=== PATIENT | female | born 1940 | race Caucasian/White ===

== ENCOUNTER → 2018-06-07 | Outpatient (CLI) | payer OTHER, BC ==
[~2018-06-07] VITALS: Ht 152.4 cm; Wt 86.2 kg
[~2018-06-07] MED LIST: ATORVASTATIN CA40 MG PO; AZITHROMYCIN 2250 MG PO; CIPRO500 MG PO; DEMADEX20 MG PO; HYDRALAZINE 2525 MG PO; HYDREA 500 MG500 M1 PO; LIORESAL 10 MG10 MG PO; METOPROLOL SUCC50 MG PO; NEURONTIN600 MG PO; NORVASC5 MG PO; OMEPRAZOLE 20 M20 M1 PO; QUINAPRIL HCL20 MG PO; SYNTHROID50 MCG PO; TRAMADOL 50 MG50 MG PO; VENTOLIN HFA 1818 GM INH
--- NOTE | ~2018-06-07 | HPC ---
[facility] [address] [place] [address] PAIN MANAGEMENT CONSULTATION Name: TIFFANY MORALES Room #: REG [facility] M..#: [id number] Admission: 06/07/18 ������������������ Attend Phys: Chapincito Garcia MD Discharge: ������������������ Date of : 40 Report #: [id number] THIS REPORT FOR: //name// CC: ERNESTO Blue MD Physician staff Chapincito aGrcia DATE OF SERVICE: 06/07/2018 Followup visit for management of chronic intractable pain with tramadol. The patient is a patient who we provide tramadol under terms of written opioid agreement. I have been seeing her at [facility], but transitioned her care to [facility] when my clinic was closed in March. She complains of diffuse pain all over with continuous, steady, aching, tender sensations in multiple joints and muscles. She carries the diagnosis of fibromyalgia. She is on chronic oxygen therapy. She reports that she has had no recent falls, but she does have need for help with standing and walking. PHYSICAL EXAMINATION: Blood pressure is 116/53, heart rate 69, respirations 14, O2 sat is 95 on 2 liters nasal cannula oxygen. Breath sounds are distant. Cardiac rhythm is regular. Diffuse pain is noted in multiple joints including shoulders, elbows, knees and hips. IMPRESSION: 1. Chronic intractable pain with arthropathy. 2. Fibromyalgia. 3. History of multiple sclerosis. 4. Congestive heart failure with atrial fibrillation. She requires nasal cannula oxygen. 5. Opioid agreement. I provided with tramadol 3-4 tablets a day, 100 tablets allowed under terms of our agreement. She is grateful for the pain relief she receives from the medication. She has no significant side effects. Her day-to-day functioning has improved significantly with the use of medication. She carefully safeguards all medications under terms of our agreement. I have renewed her medications by phone. I plan to see her back in the pain clinic in 3 months. She will call if she has any additional or problems. ��������������������������������������������� ���������������������������������������� By: ��������������������������������������������� [id number] Chapincito Garcia MD /nt
[2018-06-07 14:45] VITALS: BP 116/53
--- NOTE | 2018-06-07 15:18 | NUR ---
Pain Clinic Assessment: 1. History of Osteoarthritis: PER PT ALL JOINTS History of Rheumatoid Arthritis: NONE 2. Height: 5 ft. 00 in. 152.4 cm. Weight: 190.0 lb. oz. 86.184 kg. Patient's BMI: 37.1 3. Vital Signs: BP: 116/53 Pulse: 69 Resp: 14 Temp: 02 Sat: 95 ECG Mon: 4. Pain Intensity: 6 5. Fall Risk: Dizziness: N Needs help standing or walking: Y Fallen in the last 3 months: N Fall risk comments: 6. Patient on Blood Thinner: None 7. History of Hypertension: Y 8. Opioid Therapy greater than 6 weeks: Opiate Contract Signed: 9. Risk Assessment Tool Provided: 10. Functional Assessment Tool: 11. Recreational Drug Use: Never Drug Type: Tobacco Use: Never Smoker Tobacco Type: Amount or Packs/day: How Many Years: Alcohol Use: No Frequency: Quant:
== END ==
LOC: PAIN 07:00
DX: G89.29 Other chronic pain (principal); M79.7 Fibromyalgia; I48.91 Unspecified atrial fibrillation; I50.9 Heart failure, unspecified; Z79.891 Long term (current) use of opiate analgesic

== ENCOUNTER → 2018-11-29 | Outpatient (CLI) | payer OTHER, BC ==
[~2018-11-29] VITALS: Ht 152.4 cm; Wt 85.4 kg
[~2018-11-29] MED LIST changes: -ATORVASTATIN CA40 MG PO; +COREG25 MG PO; +IMDUR 30 MG TAB30 M1 PO; +LIPITOR40 MG PO; +MELATONIN5 M1 PO; +MYRBETRIQ50 MG PO; +SIMETHICON CHEW80 M1 PO; +VITAMIN D31 ML PO
[2018-11-29 14:34] VITALS: BP 141/52
--- NOTE | 2018-11-29 14:55 | NUR ---
Pain Clinic Assessment: 1. History of Osteoarthritis: PER PT ALL JOINTS History of Rheumatoid Arthritis: NONE 2. Height: 5 ft. 0 in. 152.4 cm. Weight: 188.2 lb. oz. 85.367 kg. Patient's BMI: 36.8 3. Vital Signs: BP: 141/52 Pulse: 76 Resp: 14 Temp: 02 Sat: 92 ECG Mon: 4. Pain Intensity: 5, VARIES 7-8 5. Fall Risk: Dizziness: N Needs help standing or walking: Y Fallen in the last 3 months: N Fall risk comments: 6. Patient on Blood Thinner: Clopidogrel Bisulf(Plavix 7. History of Hypertension: Y 8. Opioid Therapy greater than 6 weeks: Opiate Contract Signed: 9. Risk Assessment Tool Provided: LOW 10. Functional Assessment Tool: 11. Recreational Drug Use: Never Drug Type: Tobacco Use: Never Smoker Tobacco Type: Amount or Packs/day: How Many Years: Alcohol Use: No Frequency: Quant:
--- NOTE | 2018-11-30 09:33 | HPC ---
[facility] [address] [place] [address] PAIN MANAGEMENT CONSULTATION Name: TIFFANY MORALES Room #: REG [facility] M..#: [id number] Admission: 11/29/18 Attend Phys: Amairani Hull Discharge: Date of : 40 Report #: [id number] THIS REPORT FOR: //name// CC: Amairani Garcia MD DATE OF SERVICE: 11/29/2018 CHIEF COMPLAINT: Chronic intractable pain. HISTORY OF PRESENT ILLNESS: This is a very pleasant 77-year-old female who returns to the pain clinic today for refill of her medications that she uses to help treat her ongoing low back pain with radiculopathy, fibromyalgia and osteoarthritis. She is rating her pain score today of 5/10, complains of pain all over her body of aching, tender pain that is fairly constant, but worse in the morning. She feels that the tramadol is very beneficial in controlling her pain. Denies any problems with constipation or daytime sleepiness. The patient has been hospitalized several times since our last visit in May for recurrent urinary tract infections as well as a short stay in a rehab center. She had been getting some medications from those doctors upon discharge from those facilities. She is on chronic oxygen therapy and is wearing that 3 liters presently today. ALLERGIES: SULFA, IODINE, ASPIRIN, TYLENOL, KEFLEX, NITROFURANTOIN, ADHESIVE TAPE AND PENICILLIN. CURRENT MEDICATIONS: Carvedilol 25 mg b.i.d., Myrbetriq 50 mg at bedtime, simethicone, melatonin 15 mg at bedtime, Imdur 30 mg daily, vitamin D daily, Synthroid 50 mcg daily, amlodipine 5 mg daily, Neurontin 600 mg b.i.d., Lipitor 80 mg daily, Demadex 20 mg b.i.d., baclofen 10 mg t.i.d., omeprazole 20 mg daily, Hydrea 500 mg daily, quinapril 20 mg daily and tramadol 50 mg t.i.d. PQRS: 1. She has diffuse osteoarthritis. Denies any rheumatoid arthritis. 2. Height is 5 feet, weight is 188, BMI is 36. 3. Vital signs 141/52, pulse is 76, respirations 14, oxygen sat is 92. 4. Pain score is 5/10. 5. Denies dizziness. Does use a walker and a cane for walking, has not fallen in the last 3 months. 6. The patient is on Plavix and I did not see the patient does take medicines for hypertension. 7. Opioid therapy is greater than 6 weeks. 8. Risk assessment is low. Functional assessment is . 9. Recreational drug use, she denies. She is not a smoker and does not drink [address] [address] PAIN MANAGEMENT CONSULTATION Name: TIFFANY MORALES Room #: REG [facility] Krishna#: [id number] Admission: 11/29/18 Attend Phys: Amairani Hull Discharge: Date of : 40 Report #: [id number] alcohol. According to the prescription monitoring system, the patient has been filling her medications from several doctors since she has had numerous hospitalizations. We discussed this today explaining that she needed to use one provider that being Dr. Chapincito Garcia only. We will give her an opioid agreement to review. PHYSICAL EXAMINATION: GENERAL: This is alert and orientated 77-year-old female who appears her stated age, placing her current pain score at 5/10 today. HEENT: Normocephalic, atraumatic. Extraocular eye muscles are intact. She does wear oxygen at 2 liters per nasal cannula, which is in her nares today. MUSCULOSKELETAL: She has diffuse pain in multiple joints including her shoulders, elbows, knees, hips, neck and back. She has tenderness across her lumbar spine radiating into her bilateral legs. She has an IPG in her left lower back. 1+ edema in her lower extremities. She has compression hose on today. IMPRESSION: 1. Chronic intractable pain with arthropathy. 2. Fibromyalgia. 3. History of multiple sclerosis. 4. Congestive heart failure with atrial fibrillation requires supplemental oxygen. 5. Spinal cord stimulator, Medtronic device. 6. Chronic opioid use under written opioid agreement. We reviewed the fact that opiate medications are being used to provide analgesia adequate to support activities of daily living, not attempting to achieve a specific pain score on the 0-10 Visual Analog Scale. The current opiate medications are providing sufficient analgesia to allow the patient to participate in activities of daily living. The patient is not exhibiting any aberrant behavior suggestive of drug diversion. The patient is not having any adverse reactions to medications. The patient is not suffering from daytime somnolence or mental acuity changes. The patient is managing opiate-induced constipation with appropriate icaw-eyz-niqsqcb agents and dietary considerations. The patient was counseled on concern for caution with operating a motor vehicle while using opiate medications. A physical exam was performed and the patient's functional status was evaluated. All patients with back pain were advised against the bed rest greater than 4 days and were advised to return to normal activities. Pain score assessment was noted and the treatment plan was reviewed with the patient. All current medications, both prescribed and OTC were reviewed and reconciled on the electronic medical record. Tobacco screening was accomplished and smoking [address] [address] PAIN MANAGEMENT CONSULTATION Name: TIFFANY MORALES Room #: REG [facility].#: [id number] Admission: 11/29/18 Attend Phys: Amairani Hull Discharge: Date of : 40 Report #: [id number] cessation was advised when indicated. BMI was noted and diet/exercise modification was recommended for all patients following outside normal parameters. I reviewed with the patient today their responsibilities to safeguard prescription medications, reviewed their responsibility to utilize medications only as prescribed by the physician. They are to seek and receive pain medications only from 1 physician group ( [facility]). They are to use 1 pharmacy and keep the clinic informed if they change pharmacies. Their responsibilities include making followup visits in a timely fashion and to avoid abrupt discontinuation of medication usage. Their responsibilities further include bringing their medications (bottles from the pharmacy with residual pills) to the visit for possible confirmation of pill counts and the patient understands it is their responsibility to submit to random drug screens to ensure both that the medications prescribed are present, and that no other controlled substances are present. All prescriptions provided today were generated electronically. PLAN: 1. We discussed treatment options with the patient today. The patient finds her tramadol very beneficial in controlling her pain. She takes 3 tablets a day. I explained to her that we need to have her obtain these only from one physician even if she is hospitalized, she should have extra medicines at home. She verbalizes understanding. From now on, she will get them only from Dr. Chapincito Garcia. We will have her resign her opioid contract. Script given today for her Tramadol. The patient is seen in collaboration with Dr. Chapincito Garcia today. The patient will return in 3 months for medication management. <ELECTRONICALLY SIGNED> By: Amairani Hull 11/30/18 0933 [id number] Amairani Hull /nt
== END ==
LOC: PAIN 06:57
DX: G89.4 Chronic pain syndrome (principal); M79.7 Fibromyalgia; I50.9 Heart failure, unspecified; I48.91 Unspecified atrial fibrillation; G35 Multiple sclerosis; Z88.0 Allergy status to penicillin; Z79.899 Other long term (current) drug therapy; Z79.891 Long term (current) use of opiate analgesic; Z88.2 Allergy status to sulfonamides

== ENCOUNTER → 2019-03-07 | Outpatient (CLI) | payer OTHER, BC ==
[~2019-03-07] VITALS: Ht 152.4 cm; Wt 79.1 kg
[~2019-03-07] MED LIST changes: +PLAVIX 75 MG TA75 MG PO
[2019-03-07 14:13] VITALS: BP 102/64
--- NOTE | 2019-03-07 14:18 | NUR ---
Pain Clinic Assessment: 1. History of Osteoarthritis: PER PT ALL JOINTS History of Rheumatoid Arthritis: NONE 2. Height: 5 ft. 0 in. 152.4 cm. Weight: 174.4 lb. oz. 79.107 kg. Patient's BMI: 34.1 3. Vital Signs: BP: 102/64 Pulse: 86 Resp: 16 Temp: 02 Sat: 93 ECG Mon: 4. Pain Intensity: 4 5. Fall Risk: Dizziness: N Needs help standing or walking: N Fallen in the last 3 months: N Fall risk comments: 6. Patient on Blood Thinner: Clopidogrel Bisulf(Plavix 7. History of Hypertension: Y 8. Opioid Therapy greater than 6 weeks: Opiate Contract Signed: 9. Risk Assessment Tool Provided: LOW 10. Functional Assessment Tool: 11. Recreational Drug Use: Never Drug Type: Tobacco Use: Never Smoker Tobacco Type: Amount or Packs/day: How Many Years: Alcohol Use: No Frequency: Quant:
--- NOTE | 2019-03-08 15:26 | HPC ---
[facility] [place] [address] [place] [address] PAIN MANAGEMENT CONSULTATION Name: TIFFANY MORALES Room #: REG [facility]..#: [id number] Admission: 03/07/19 Attend Phys: Amairani Hull Discharge: Date of : 40 Report #: [id number] THIS REPORT FOR: //name// CC: Amairani Garcia MD DATE OF SERVICE: 03/07/2019 CHIEF COMPLAINT: Chronic intractable pain. HISTORY OF PRESENT ILLNESS: This is a very pleasant 78-year-old female who returns to the pain clinic today for refill of her tramadol. She uses this medication and finds it very beneficial in helping control her generalized pain that is related to her multiple sclerosis. She finds that she takes 3 on average, tramadol a day and occasionally she may require a fourth pill when she is having a bad day. Her pain score today is 4/10, per her report. It is an aching, constant pain that is worse in the mornings or not taking her medication. She reports she has not been hospitalized since we last saw her and has had very good past 3 months. Today, she would just like refills of her tramadol. ALLERGIES: SULFA, IODINE, ASPIRIN, TYLENOL, KEFLEX, NITROFURANTOIN, ADHESIVES AND PENICILLIN. CURRENT MEDICATIONS: Plavix, tramadol, Coreg, Myrbetriq, simethicone, melatonin, Imdur, Synthroid, Norvasc, Lipitor, Neurontin, Demadex, baclofen, omeprazole, Hydrea and quinapril. PQRS: 1. She has diffuse osteoarthritis, but denies any rheumatoid arthritis. 2. Height is 5 feet, weight is 174, BMI is 34. 3. Vital signs 102/64, pulse is 86, respirations 16, oxygen sat is 93. 4. Pain score is 4/10. 5. Denies dizziness, does not need help walking or standing, has not fallen in the last 3 months. The patient is on Plavix as well as hypertension medicines. 6. Opioid therapy is greater than 6 weeks. Risk assessment tool is low. Functional assessment is . 7. Recreational drug use, she denies. She is not a smoker and does not drink alcohol. According to the prescription monitoring system, the patient is due to fill her medications. She is filling them in a timely fashion from only Dr. Chapincito Garcia. According to the CDC guidelines, her morphine mEq is 10 MME per day. [address] [address] PAIN MANAGEMENT CONSULTATION Name: TIFFANY MORALES [id number] Admission: 03/07/19 Attend Phys: Amairani Hull Discharge: Date of : 40 Report #: [id number] PHYSICAL EXAMINATION: GENERAL: This is alert and orientated 78-year-old female who appears her stated age, placing her current pain score at 4/10. HEENT: Normocephalic, atraumatic. Extraocular eye muscles are intact. She has a nasal cannula in her bilateral nares today, oxygen at 3 liters. MUSCULOSKELETAL: She has diffuse pain in multiple joints. She has tenderness across her lumbar spine that radiates into her legs. She has compression hose on bilaterally today. She uses a walker. Her gait is antalgic. IMPRESSION: 1. Chronic intractable pain with arthropathy. 2. Fibromyalgia. 3. History of multiple sclerosis. 4. Congestive heart failure with atrial fibrillation, requiring supplemental oxygen. 5. Spinal cord stimulator, Medtronic device. 6. Chronic opioid use under written agreement. PLAN: 1. We discussed treatment options with the patient today. The patient finds the tramadol very beneficial in controlling her pain. She is able to participate in activities of daily living and activities outside her home without difficulty with adverse reactions or side effects from the medication. She would like refills of her tramadol today. We will be e-prescribe tramadol 50 mg, #90, with 2 additional refills to her [facility]. 2. The patient is instructed to call for an appointment in 3 months, as she needs medications. The patient is seen today in collaboration with Dr. Chapincito Garcia. <ELECTRONICALLY SIGNED> By: Amairani Hull 03/08/19 1526 [id number] Amairani Hull /nt
== END ==
LOC: PAIN 06:59
DX: G89.4 Chronic pain syndrome (principal); M79.7 Fibromyalgia; G35 Multiple sclerosis; I48.92 Unspecified atrial flutter; I50.9 Heart failure, unspecified; Z88.8 Allergy status to other drugs, medicaments and biological substances; Z88.2 Allergy status to sulfonamides

== ENCOUNTER → 2019-10-13 | Outpatient (CLI) | payer OTHER, BC ==
[~2019-10-13] VITALS: Ht 152.4 cm; Wt 81.6 kg
[2019-10-13 12:30] VITALS: BP 121/49
--- NOTE | 2019-10-13 12:33 | NUR ---
Pain Clinic Assessment: 1. History of Osteoarthritis: PER PT ALL JOINTS History of Rheumatoid Arthritis: NONE 2. Height: 5 ft. 0 in. 152.4 cm. Weight: 180.0 lb. oz. 81.648 kg. Patient's BMI: 35.2 3. Vital Signs: BP: 121/49 Pulse: 74 Resp: 14 Temp: 02 Sat: 94 ECG Mon: 4. Pain Intensity: 6 5. Fall Risk: Dizziness: N Needs help standing or walking: N Fallen in the last 3 months: N Fall risk comments: 6. Patient on Blood Thinner: Clopidogrel Bisulf(Plavix 7. History of Hypertension: Y 8. Opioid Therapy greater than 6 weeks: Opiate Contract Signed: 9. Risk Assessment Tool Provided: LOW 10. Functional Assessment Tool: 11. Recreational Drug Use: Never Drug Type: Tobacco Use: Never Smoker Tobacco Type: Amount or Packs/day: How Many Years: Alcohol Use: No Frequency: Quant:
--- NOTE | 2019-10-13 15:01 | HPC ---
[facility] [address] [place] [address] PAIN MANAGEMENT CONSULTATION Name: TIFFANY MORALES Room #: REG IONA M.Lisa.#: [id number] Admission: 10/13/19 Attend Phys: Amairani Hull Discharge: Date of : 40 Report #: [id number] THIS REPORT FOR: cc: Nelson Blue MD, Matthew B. MD Hocker,Amairani BOTELLO ~ CC: Chapincito Garcia MD DATE OF SERVICE: 10/13/2019 CHIEF COMPLAINT: Chronic intractable pain. HISTORY OF PRESENT ILLNESS: This is a very pleasant 78-year-old who unfortunately has had several health issues since we have seen her last in March. She reports she had a perforated colon and required her to have emergency surgery. She does now have a colostomy, which she states is doing quite well. She was in the rehab facility for several months recovering after that surgery. She tells us during that time, she did take oxycodone from the provider there. Once she returned home, she has restarted her tramadol that she typically takes for generalized all over body aches and pains. She does most significantly complain of left hip pain that does radiate down her left leg. She reports a constant tenderness feeling that is worse with walking and activity. The patient reports that she does use a walker within her house boundaries, but in the yard, she uses an electric wheelchair and today, she is in a wheelchair as well. Her family member is here present with her. She does find the spinal cord stimulator as well as her medications very beneficial in helping relieve her pain. She is requesting refills today of her medicince. ALLERGIES: SULFA, IODINE, ASPIRIN, TYLENOL, KEFLEX, NITROFURANTOIN, ADHESIVES AND PENICILLIN. MEDICATIONS: Tramadol 50 mg 3 times a day, Plavix, carvedilol, Myrbetriq, simethicone, melatonin, Imdur, vitamin D, erythromycin p.r.n., Synthroid, Norvasc, Neurontin, Lipitor, Demadex, baclofen, omeprazole, hydroxyurea and quinapril. PQRS: 1. She has diffuse osteoarthritis affecting multiple joints and denies rheumatoid arthritis as well as fibromyalgia. 2. Height is 5 feet, weight is 180, BMI is 35. 3. Vital signs 121/49, pulse is 74, respirations 14, oxygen sat is 94%. Pain score is 6/10. 4. Fall risk. Denies dizziness. Does need help with walking. As stated, uses a walker or electric wheelchair. Has not fallen in the last 3 months. 5. The patient is on Plavix and also takes medicine [place] [address] PAIN MANAGEMENT CONSULTATION Name: TIFFANY MORALES JO Room #: REG CLEmily Krishna#: [id number] Admission: 10/13/19 Attend Phys: Amairani Hull Discharge: Date of : 40 Report #: [id number] 6. Opioid therapy is greater than 6 weeks. Risk assessment tool is low. Functional assessment is 28/70. 7. Recreational drug use, she denies. She is not a smoker and does not drink alcohol. According to the prescription monitoring system, the patient last filled our prescriptions in August. She has filled numerous oxycodone prescriptions from [facility]. We spoke with the pharmacist. Those were when she was at her rehab facility under the care of that physician post surgery. Per prescription monitoring system, her morphine mEq according to the CDC is 10. PHYSICAL EXAMINATION: GENERAL: This is an alert and orientated, well-developed, well-nourished 78-year-old female who appears her stated age, placing her current pain score at 6/10. HEENT: Normocephalic, atraumatic. Extraocular eye muscles intact. She has nasal cannula on today at 3 liters and is wearing a mask as well. ABDOMEN: She has a colostomy in her left lower quadrant with no skin irritation. MUSCULOSKELETAL: She has diffuse pain in multiple joints. Tenderness across the lumbar spine that does radiate into her left hip and into her left leg. She is wearing compression hose bilaterally today. She is in a wheelchair. She has decreased strength in her lower extremities due to deconditioning. IMPRESSION: 1. Chronic intractable pain with arthropathy. 2. Fibromyalgia. 3. History of multiple sclerosis. 4. Congestive heart failure with atrial fibrillation, requiring oxygen and anticoagulation. 5. Spinal cord stimulator, Medtronic device. 6. Recent perforated ulcer with colostomy. 7. Chronic opioid use under written agreement. We reviewed the fact that opiate medications are being used to provide analgesia adequate to support activities of daily living, not attempting to achieve a specific pain score on the 0-10 Visual Analog Scale. The current opiate medications are providing sufficient analgesia to allow the patient to participate in activities of daily living. The patient is not exhibiting any aberrant behavior suggestive of drug diversion. The patient is not having any adverse reactions to medications. The patient is not suffering from daytime somnolence or mental acuity changes. The patient is managing opiate-induced constipation with appropriate mfvu-chy-lqhdjte agents and dietary considerations. The patient was counseled on concern for caution with operating a motor vehicle while using opiate medications. [address] [address] PAIN MANAGEMENT CONSULTATION Name: TIFFANY MORALES [id number] Admission: 10/13/19 Attend Phys: Amairani Hull Discharge: Date of : 40 Report #: [id number] A physical exam was performed and the patient's functional status was evaluated. All patients with back pain were advised against the bed rest greater than 4 days and were advised to return to normal activities. Pain score assessment was noted and the treatment plan was reviewed with the patient. All current medications, both prescribed and OTC were reviewed and reconciled on the electronic medical record. Tobacco screening was accomplished and smoking cessation was advised when indicated. BMI was noted and diet/exercise modification was recommended for all patients following outside normal parameters. I reviewed with the patient today their responsibilities to safeguard prescription medications, reviewed their responsibility to utilize medications only as prescribed by the physician. They are to seek and receive pain medications only from 1 physician group ( [facility]). They are to use 1 pharmacy and keep the clinic informed if they change pharmacies. Their responsibilities include making followup visits in a timely fashion and to avoid abrupt discontinuation of medication usage. Their responsibilities further include bringing their medications (bottles from the pharmacy with residual pills) to the visit for possible confirmation of pill counts and the patient understands it is their responsibility to submit to random drug screens to ensure both that the medications prescribed are present, and that no other controlled substances are present. All prescriptions provided today were generated electronically. PLAN: 1. We discussed treatment options with the patient today. The patient finds her tramadol beneficial in controlling her pain. She did take oxycodone briefly postoperatively, but was not discharged with any oxycodone medicine and is back to her current 3 tramadol a day. We will send this script electronically by Dr. Chapincito Garcia for #90 tablets with 2 additional refills for a total of 3 months. 2. Since the patient has numerous comorbidities, we will see her as a telemedicine appointment at her next visit due to the COVID outbreak. The patient is agreeable with this plan for the next 3-month visit. 3. The patient is seen today in collaboration with Dr. Chapincito Garcia who agreed with the above plan. <ELECTRONICALLY SIGNED> By: Amairani Hull 10/13/19 1501 [id number] Amairani Hull /nt
== END ==
LOC: PAIN 06:51
PROVIDERS: ATTEND Clinical Nurse Specialist Adult Health
DX: G89.29 Other chronic pain (principal); M12.88 Other specific arthropathies, not elsewhere classified, other specified site; M79.7 Fibromyalgia; I48.91 Unspecified atrial fibrillation; I50.9 Heart failure, unspecified; Z93.3 Colostomy status; Z96.7 Presence of other bone and tendon implants; Z88.8 Allergy status to other drugs, medicaments and biological substances; Z68.35 Body mass index [BMI] 35.0-35.9, adult; Z79.891 Long term (current) use of opiate analgesic; Z79.899 Other long term (current) drug therapy

== ENCOUNTER → 2019-12-29 | Outpatient (CLI) | payer OTHER, BC ==
--- NOTE | 2019-12-29 15:24 | HPC ---
[facility] [address] [place] [address] PAIN MANAGEMENT CONSULTATION Name: TIFFANY MORALES Room #: REG IONA Borges.#: [id number] Admission: 12/29/19 Attend Phys: Amairani Hull Discharge: Date of : 40 Report #: [id number] CC: Amairani Garcia MD DATE OF SERVICE: 12/29/2019 This is a Telemed appointment that the patient has consented to via [employer] due to the patient's comorbidities during the COVID outbreak. I spoke with the patient from 10:10 to 10:30. CHIEF COMPLAINT: Chronic intractable pain. HISTORY OF PRESENT ILLNESS: This is a pleasant 79-year-old female who I am speaking with via [employer] to discuss her opioid medications. Most recently, she had a perforated colon requiring emergency surgery and has been recovering at home. We discussed Telemed appointment due to her comorbidities. So therefore, I am speaking with her via [employer] today. The patient is reporting today a pain score of 4/10. She feels the tramadol is very beneficial in keeping her pain under control. She reports that going without it would make her sit still and not be active at home, causing her increasing pain. Today, she states her pain is all over her body and in several joints as well as her lower back, most significantly in her hip and left leg. She reports a deep aching and tenderness feeling. She denies problems with constipation because she does have a colostomy and feels that the tramadol does not cause any issues. She does use a spinal cord stimulator and reports that it is on 24 hours a day and finds that device very beneficial in helping reduce her pain as well. Today, she would like a refill of her tramadol medication. ALLERGIES: SULFA, IODINE, ASPIRIN, TYLENOL, KEFLEX, NITROFURANTOIN, PENICILLIN G AND ADHESIVE TAPE. CURRENT MEDICATIONS: Tramadol 50 mg t.i.d., Plavix, Coreg, Myrbetriq, simethicone, melatonin, isosorbide, vitamin D, Synthroid, Norvasc, gabapentin, atorvastatin, Demadex, baclofen, omeprazole, Hydrea and quinapril. PQRS: 1. She has diffuse osteoarthritis infecting multiple joints and denies any rheumatoid arthritis, though has fibromyalgia. We did not weigh her today or do vital signs since this is a Telemed appointment. 2. Pain score is 4/10. 3. Fall risk. Denies dizziness. She does need assistance with walking and uses a walker or an electric wheelchair. She reports no falls in the past 3 months. 4. The patient is on Plavix as well as medications for hypertension. 5. Opioid therapy is greater than 6 weeks; therefore risk assessment is low. Functional assessment is 28/70. 6. Recreational drug use, she denies. She is not a smoker and does not drink alcohol. According to the prescription monitoring system, she is filling her medications appropriately in a timely fashion. Her morphine milliequivalent is 16 MME per day. PHYSICAL EXAMINATION: Physical examination is the review of systems today. GENERAL: This is alert and orientated, very pleasant 79-year-old female who is answering my questions appropriately, placing her pain score at 4/10. HEENT: Normocephalic, atraumatic. Extraocular eye muscles are intact. She is not wearing a mask since she is at home for this Telemed appointment. MUSCULOSKELETAL: The patient reports multiple joints that cause her increase in pain and uses a walker for ambulation. IMPRESSION: 1. Chronic intractable pain with arthropathy. 2. Fibromyalgia. 3. Multiple sclerosis. 4. Congestive heart failure with atrial fibrillation, on anticoagulation therapy. 5. Spinal cord stimulator device. 6. Chronic opioid use under written agreement. We reviewed the fact that opiate medications are being used to provide analgesia adequate to support activities of daily living, not attempting to achieve a specific pain score on the 0-10 Visual Analog Scale. The current opiate medications are providing sufficient analgesia to allow the patient to participate in activities of daily living. The patient is not exhibiting any aberrant behavior suggestive of drug diversion. The patient is not having any adverse reactions to medications. The patient is not suffering from daytime somnolence or mental acuity changes. The patient is managing opiate-induced constipation with appropriate bftx-mnx-rrwcbck agents and dietary considerations. The patient was counseled on concern for caution with operating a motor vehicle while using opiate medications. PLAN: 1. We discussed treatment options with the patient today. She finds her tramadol very beneficial in helping control her pain. She reports that she would be very inactive if she is without her tramadol. She feels that she is able to participate in all activities of daily living by taking this medication 3 times a day and utilizing her spinal cord stimulator. We will have Dr. Chapincito Garcia who collaborated care, send tramadol 50 mg #90 with 2 additional refills to her local pharmacy. 2. We will discuss that at her next medication visit. We will hopefully be able to see her in the office in late March or early April. The patient agrees and is hopeful that she will be able to come to an office appointment. <ELECTRONICALLY SIGNED> By: Amairani Hull 12/29/19 1524 [id number] Amairani Hull /nt
== END ==
LOC: TELEPC 06:51 → PAIN 13:36
PROVIDERS: ATTEND Clinical Nurse Specialist Adult Health
DX: G89.29 Other chronic pain (principal); M79.10 Myalgia, unspecified site; M41.80 Other forms of scoliosis, site unspecified; I50.9 Heart failure, unspecified; I48.91 Unspecified atrial fibrillation; F11.20 Opioid dependence, uncomplicated; Z88.8 Allergy status to other drugs, medicaments and biological substances; Z79.899 Other long term (current) drug therapy

== ENCOUNTER → 2020-04-23 | Outpatient (CLI) | payer OTHER, BC ==
[~2020-04-23] VITALS: Ht 152.4 cm; Wt 85.0 kg
[2020-04-23 14:12] VITALS: BP 158/60
--- NOTE | 2020-04-23 14:22 | NUR ---
Pain Clinic Assessment: 1. History of Osteoarthritis: PER PT ALL JOINTS History of Rheumatoid Arthritis: NONE 2. Height: 5 ft. 0 in. 152.4 cm. Weight: 187.4 lb. oz. 85.004 kg. Patient's BMI: 36.6 3. Vital Signs: BP: 158/60 Pulse: 62 Resp: 14 Temp: 02 Sat: 94 ECG Mon: 4. Pain Intensity: 5 5. Fall Risk: Dizziness: N Needs help standing or walking: Y Fallen in the last 3 months: N Fall risk comments: 6. Patient on Blood Thinner: Clopidogrel Bisulf(Plavix 7. History of Hypertension: Y 8. Opioid Therapy greater than 6 weeks: Opiate Contract Signed: 9. Risk Assessment Tool Provided: LOW 10. Functional Assessment Tool: 11. Recreational Drug Use: Never Drug Type: Tobacco Use: Never Smoker Tobacco Type: Amount or Packs/day: How Many Years: Alcohol Use: No Frequency: Monthly Quant: 1
--- NOTE | 2020-04-24 09:15 | HPC ---
[facility] [address] [place] [address] PAIN MANAGEMENT CONSULTATION Name: TIFFANY MORALES Room #: REG [facility] M..#: [id number] Admission: 04/23/20 Attend Phys: Amairani Hull Discharge: Date of : 40 Report #: [id number] THIS REPORT FOR: cc: Nelson Blue MD, Matthew B. MD Hocker,Amairani BOTELLO ~ DATE OF SERVICE: 04/23/2020 CHIEF COMPLAINT: Chronic intractable pain. HISTORY OF PRESENT ILLNESS: This is a very pleasant 79-year-old female who returns to the pain clinic today for refill of her medications. She states that her pain is a 5/10 today that is well controlled with her tramadol. She has generalized body aches and finds that taking one tablet 3 times a day, does relieve most of her arthritic issues. She reports it is tender achiness that is worse with walking. She is in a wheelchair today. She does utilize heat, as well as her medications and finds them beneficial. The patient is on the list to receive the COVID vaccination. She unfortunately is not scheduled at any place currently. She is quite frustrated by this. She does have several comorbidities and wears oxygen 24hrs a day x 7 and is hopeful to get a call to be moved up to the list soon. ALLERGIES: SULFA, IODINE, ASPIRIN, TYLENOL, KEFLEX, NITROFURANTOIN, ADHESIVE TAPE AND PENICILLIN. CURRENT MEDICATIONS: Tramadol 50 mg t.i.d., Plavix, Coreg, Myrbetriq, simethicone, melatonin, Imdur, vitamin D, levothyroxine, amlodipine, gabapentin, Lipitor, Demadex, baclofen, omeprazole, Hydrea and quinapril. PQRS: 1. She has diffuse osteoarthritis affecting multiple joints. Denies any rheumatoid arthritis and has a diagnosis of fibromyalgia. 2. Height is 5 feet, weight is 187, BMI is 36. 3. Vital signs, blood pressure 158/60, pulse is 62, respirations 14, and oxygen sat is 94%. 4. Pain score is 5/10. 5. Denies dizziness, does need assistance with ambulation and is in wheelchair today. She has not fallen in the last 3 months. The patient is on blood thinners as well as medications for hypertension. 6. Opioid therapy is greater than 6 weeks; therefore, an opioid signed contract is on the chart. Risk assessment is low. Functional assessment is 28/70. 7. Recreational drug use, she denies. She is not a smoker and does not drink alcohol. According to the prescription monitoring system, she is filling appropriately. [address] [address] PAIN MANAGEMENT CONSULTATION Name: TIFFANY MORALES JO Room #: REG IONA Krishna#: [id number] Admission: 04/23/20 Attend Phys: Amairani Hull Discharge: Date of : 40 Report #: [id number] She is slightly past due to fill her medications. Her morphine mEq is 10-15 MMEs per day. PHYSICAL EXAMINATION: GENERAL: This is alert and orientated, very pleasant 79-year-old female who appears her stated age. She is a good historian with no signs of overmedication, placing her current pain score at 5/10 today. HEENT: Normocephalic, atraumatic. Extraocular eye muscles are intact. Mucous membranes are moist. She is wearing 3 liters of oxygen via nasal cannula and wearing a mask. ABDOMEN: She has a colostomy in her left lower quadrant and a urostomy bag as well. MUSCULOSKELETAL: She has diffuse pain across her multiple joints including shoulders, elbows, knees and hips. She is in a wheelchair. She has decreased strength in her lower extremities and is deconditioned bilaterally. IMPRESSION: 1. Chronic intractable pain with arthropathy. 2. Fibromyalgia. 3. History of multiple sclerosis. 4. Congestive heart failure with atrial fibrillation, on anticoagulation therapy. 5. Spinal cord stimulator, Medtronic device. 6. Chronic opioid use under written agreement. PLAN: 1. We discussed treatment options with the patient today. The patient finds her tramadol very beneficial, taking up to 3 tablets a day. We will phone in this medication for #90 with 2 additional refills. 2. The patient is wondering about having a telemedicine appointment. I had discussed with her that her telemedicine was last November and we will consider a telemedicine appointment in June depending on the COVID outbreak at that time. The patient instructed to call when she has about 2 weeks left of medications. 3. We did discuss the COVID vaccination and encouraged the patient to take Tylenol when she does have her second dose to help with any side effects that she may experience. Hopefully, she will be called soon on one of the many lists that she is on. 4. The patient discharged to home with her . The patient's care was collaborated with Dr. Chapincito Garcia today who I discussed via the telephone. <ELECTRONICALLY SIGNED> By: Amairani Hull 04/24/20 0915 [id number] Amairani Hull /nt
== END ==
LOC: PAIN 07:00
PROVIDERS: ATTEND Clinical Nurse Specialist Adult Health
DX: G89.29 Other chronic pain (principal); M79.10 Myalgia, unspecified site; I50.9 Heart failure, unspecified; I48.91 Unspecified atrial fibrillation; F11.20 Opioid dependence, uncomplicated; Z88.8 Allergy status to other drugs, medicaments and biological substances; Z79.899 Other long term (current) drug therapy

== ENCOUNTER → 2020-07-19 | Outpatient (CLI) | payer OTHER, BC ==
[~2020-07-19] VITALS: Ht 152.4 cm; Wt 83.9 kg
[2020-07-19 11:03] VITALS: BP 141/98
--- NOTE | 2020-07-19 11:08 | NUR ---
Pain Clinic Assessment: 1. History of Osteoarthritis: PER PT ALL JOINTS History of Rheumatoid Arthritis: NONE 2. Height: 5 ft. 0 in. 152.4 cm. Weight: 185.0 lb. oz. 83.916 kg. Patient's BMI: 36.1 3. Vital Signs: BP: 141/98 Pulse: 63 Resp: 18 Temp: 02 Sat: 94 ECG Mon: 4. Pain Intensity: 6 5. Fall Risk: Dizziness: N Needs help standing or walking: N Fallen in the last 3 months: N Fall risk comments: 6. Patient on Blood Thinner: Clopidogrel Bisulf(Plavix 7. History of Hypertension: Y 8. Opioid Therapy greater than 6 weeks: Opiate Contract Signed: 9. Risk Assessment Tool Provided: LOW 10. Functional Assessment Tool: 11. Recreational Drug Use: Never Drug Type: Tobacco Use: Never Smoker Tobacco Type: Amount or Packs/day: How Many Years: Alcohol Use: No Frequency: Quant:
== END ==
LOC: PAIN 07:30
PROVIDERS: ATTEND Clinical Nurse Specialist Adult Health
DX: M79.10 Myalgia, unspecified site (principal); G89.29 Other chronic pain; Z79.899 Other long term (current) drug therapy

== ENCOUNTER → 2020-12-31 | Outpatient (CLI) | payer OTHER, BC ==
[~2020-12-31] VITALS: Ht 152.4 cm; Wt 78.6 kg
[2020-12-31 14:02] VITALS: BP 157/58
== END ==
LOC: PAIN 12:13
PROVIDERS: ATTEND Anesthesiology Pain Medicine
DX: G35 Multiple sclerosis (principal); M79.7 Fibromyalgia; M13.88 Other specified arthritis, other site; I50.9 Heart failure, unspecified; Z88.0 Allergy status to penicillin; Z88.6 Allergy status to analgesic agent; Z88.8 Allergy status to other drugs, medicaments and biological substances; Z79.899 Other long term (current) drug therapy